=== PATIENT | female | born 1970 | race Caucasian/White ===

== ENCOUNTER → 2018-12-04 | Outpatient (REF) | payer OTHER | LOC: M LAB REF 20:06 | PROVIDERS: ATTEND Physician Assistant | DX: R30.0 Dysuria (principal) ==

== ENCOUNTER 2019-07-24 08:30 | Day surgery (SDC) | payer OTHER ==
[~2019-07-24] VITALS: Ht 167.6 cm; Wt 74.8 kg
[~2019-07-24 08:30] MED LIST: FERR325T16 PO; LEXA1TAB PO; LR 1,000 ML IV ONE; TRAZ-163 PO; VITA100T59 PO
[2019-07-24] MEDS ORDERED: KETOROLAC 60 MG/2 ML VIAL (J1885) As Ordered ONE (08:45)
[2019-07-24] MEDS ORDERED: dexameTHASONE 4 MG/ML 1ML VIAL (J1100) As Ordered ONE (08:45)
[2019-07-24] MEDS ORDERED: PROPOFOL 200 MG/20 ML VIAL As Ordered ONE (08:45)
[2019-07-24] MEDS ORDERED: fentaNYL 100 MCG/2 ML INJECTION (J3010) As Ordered ONE (08:45)
[2019-07-24] MEDS ORDERED: MIDAZOLAM INJ 2 MG/2 ML VIAL (J2250) As Ordered ONE (08:45)
[2019-07-24] MEDS ORDERED: LIDOCAINE 2% INJ 100 MG/5 ML SDV (FOR ANES.) As Ordered ONE (08:45)
[2019-07-24] MEDS ORDERED: ONDANSETRON 4MG/2ML VIAL (J2405) As Ordered ONE (08:45)
[2019-07-24 09:00] LABS: HEMATOCRIT 39.8 % (36.0-47.0); HEMOGLOBIN 12.2 g/dl (12.0-15.5); MEAN CORPUSCULAR HEMOGLOBIN 26.1 pg (27.0-33.0); MEAN CORPUSCULAR HGB CONC 30.7 g/dl (32.0-36.5); MEAN CORPUSCULAR VOLUME 85.2 fl (80.0-96.0); PLATELET COUNT, AUTOMATED 292 10^3/uL (150-450); RED BLOOD COUNT 4.67 10^6/uL (4.00-5.40); WHITE BLOOD COUNT 4.5 10^3/uL (4.0-10.0)
[2019-07-24 09:24] LABS: HCG, SERUM QUALITATIVE NEGATIVE (NEGATIVE)
[2019-07-24] MEDS ORDERED: BUPIVACAINE/EPIN 0.25% 30 ML VIAL As Ordered ONE (10:55)
[2019-07-24] MEDS ORDERED: SILVER NITRATE APPLICATOR As Ordered ONE (10:55)
[2019-07-24] MEDS: oxyCODONE 5MG TAB PO PRN ×2 (12:14→12:44)
[2019-07-24] MEDS ORDERED: MEPERIDINE INJ 25 MG/ML VIAL (J2175) IV PRN (12:15)
[2019-07-24] MEDS ORDERED: METOCLOPRAMIDE INJ 10MG/2ML VIAL (J2765) IV PRN (12:15)
[2019-07-24] MEDS ORDERED: PERCOCET 5MG/325MG TAB PO PRN (12:15)
[2019-07-24] MEDS ORDERED: KETOROLAC 30 MG/ML VIAL (J1885) IV PRN (12:15)
[2019-07-24] MEDS ORDERED: LR 1,000 ML IV SCH (12:15)
[2019-07-24] MEDS ORDERED: ONDANSETRON 4MG/2ML VIAL (J2405) IV PRN (12:15)
[2019-07-24] MEDS ORDERED: fentaNYL 100 MCG/2 ML INJECTION (J3010) IV PRN (12:15)
[2019-07-24 13:48] VITALS: BP 132/73
--- NOTE | 2019-07-28 11:48 | RO ---
DATE OF PROCEDURE: 07/24/2019 PREPROCEDURE DIAGNOSIS: Heavy menstrual bleeding. POSTPROCEDURE DIAGNOSIS: Heavy menstrual bleeding. PROCEDURE: Diagnostic hysteroscopy and then NovaSure endometrial ablation. SURGEON: Dr. Adán Reed. BENCH PATTERNMAKER METAL: None. ANESTHESIA: General. FLUIDS: 700 mL lactated Ringers. URINE OUTPUT: 150 mL via David catheter. ESTIMATED BLOOD LOSS: 5 mL. COMPLICATIONS: None. ANTIBIOTICS: None indicated. DESCRIPTION OF PROCEDURE: The risks, benefits, indications and alternatives to the procedure were reviewed with the patient and informed consent was obtained. The patient was taken to the operating room and general anesthesia was obtained without difficulty. The patient was then placed in the lithotomy position using Shin stirrups. The patient was then prepped and draped in the usual sterile fashion. The bladder was drained using an in-and-out catheter. A sterile speculum was placed into the patient's vagina and the cervix was visualized. A single tooth tenaculum was then used to grasp the anterior lip of the cervix. A uterine sound was then gently inserted into the uterus which sounded to 8.5 cm in length. The cervical length was measured to be 4 cm. Thus, the uterine cavity length was 4.5 cm. The cervix had no need for dilation. The hysteroscope was first primed. The hysteroscope was then advanced into the endocervical canal under direct visualization. After distention of the uterus with warm saline, a systematic examination of the intrauterine cavity was performed. The cavity was completely normal and the tubal ostia were visualized bilaterally. The hysteroscope was then removed. The NovaSure device was then opened and a uterine cavity length of 4.5 cm was set. The cervix was then further dilated to size 18 [place] with a Enoc dilator. The NovaSure device was then placed into the uterine cavity and deployed. The usual maneuvers were performed per the treasury management sales consultant's guidelines and a cavity width of 4.4 cm was obtained. The cavity integrity was assessed and found to be intac. The NovaSure device was then activated and the cavity was ablated for 120 seconds at a power of 109 [place]. The NovaSure device was the carefully removed from the endometrial cavity. The single tooth tenaculum was then removed from the anterior lip of the cervix. The tenaculum sites were noted to be hemostatic. All instruments were then confirmed to have been removed from the vagina. A vaginal sweep was then performed and confirmed that no retained foreign objects remained. At the completion of the case the sponge, instrument and needle counts were correct times two. The patient tolerated the procedure well and was taken to the postanesthesia care unit (PACU) in stable condition. YAHAIRA
== END 2019-07-24 13:49 | disposition home or self-care (01) ==
LOC: M SDC 08:30
PROVIDERS: ATTEND Obstetrics & Gynecology
DX: N93.8 Other specified abnormal uterine and vaginal bleeding (principal); N92.0 Excessive and frequent menstruation with regular cycle; F41.9 Anxiety disorder, unspecified; M32.9 Systemic lupus erythematosus, unspecified; Z79.899 Other long term (current) drug therapy
CPT/HCPCS: 36415; 58563; 84703; 85027; J1100; J1885; J2250; J2405; J3010